=== PATIENT | female | born 1990 | race Hispanic/Latino ===

== ENCOUNTER 2021-10-06 16:05 | Observation (INO) | payer MEDICAID ==
[~2021-10-06 16:05] MED LIST: PNV91TAB3 PO
== END 2021-10-06 18:40 | disposition home or self-care (01) ==
LOC: LDH 16:05
PROVIDERS: ADMIT Specialist; ATTEND Specialist
DX: Z34.93 Encounter for supervision of normal pregnancy, unspecified, third trimester (principal); Z3A.33 33 weeks gestation of pregnancy
CPT/HCPCS: 59025; 76819; G0378 ×2; G0379